=== PATIENT | male | born 1965 | race Asian ===

== ENCOUNTER 2020-11-18 12:58 | Emergency (ER) | payer OTHER ==
[~2020-11-18] VITALS: Ht 170.2 cm; Wt 104.5 kg
[~2020-11-18 12:58] MED LIST: NOCURR
[2020-11-18] MEDS ORDERED: AMLO-257 PO (13:11)
[2020-11-18] MEDS ORDERED: METF-960 PO (13:11)
[2020-11-18] MEDS ORDERED: GLIP5 PO (13:11)
[2020-11-18] MEDS ORDERED: POTA8TAB71 PO (13:11)
[2020-11-18] MEDS ORDERED: LABE100T8 PO (13:11)
[2020-11-18] MEDS ORDERED: ASPI-1450 PO (13:11)
[2020-11-18] MEDS ORDERED: LOSA25TA21 PO (13:11)
[2020-11-18] MEDS ORDERED: RAMI1.258 PO (13:11)
[2020-11-18 13:22] LABS: GLUCOSE,POINT OF CARE 141 MG/DL (70-110)
[2020-11-18 14:44] LABS: BASOPHILS % (AUTO) 0.4 % (0.0-2.0); EOSINOPHILS % (AUTO) 1.6 % (1.0-6.0); HEMOGLOBIN 13.4 g/dL (13.5-17.5); LYMPHOCYTES # (AUTO) 2.1 K/uL (1.0-4.8); LYMPHOCYTES % (AUTO) 23.3 % (22.0-44.0); MEAN CORPUSCULAR HEMOGLOBIN 31.5 pg (26.0-34.0); MEAN CORPUSCULAR HGB CONC 35.3 G/dL (31.0-37.0); MEAN CORPUSCULAR VOLUME 89 fL (80-100); MONOCYTES # (AUTO) 0.7 K/uL (0.1-1.0); MONOCYTES % (AUTO) 8.1 % (2.0-9.0); NEUTROPHILS # (AUTO) 6.1 K/uL (1.8-7.7); NEUTROPHILS % (AUTO) 66.6 % (40.0-70.0); PLATELET COUNT (AUTO) 169 K/uL (150-450); RED BLOOD CELL COUNT(AUTO) 4.26 MIL/uL (4.50-5.90); RED CELL DISTRIBUTION WIDTH 14.2 % (11.5-14.5)
[2020-11-18 14:51] LABS: CREATININE 1.44 mg/dL (0.60-1.30); POTASSIUM 3.6 mmol/L (3.5-5.1)
[2020-11-18 14:57] LABS: ALBUMIN 3.6 g/dL (3.4-5.0); BILIRUBIN,TOTAL 0.5 mg/dL (0.1-1.0); TOTAL PROTEIN, SERUM 7.6 g/dL (6.4-8.2)
[2020-11-18 16:17] LABS: APPEARANCE,URINE CLEAR (CLEAR); BILIRUBIN,URINE NEGATIVE (NEGATIVE); GLUCOSE, URINE (UA) >=1000 mg/dL (NEGATIVE); KETONES,URINE NEGATIVE (NEGATIVE); LEUKOCYTE ESTERASE ,URINE NEGATIVE (NEGATIVE); NITRATE,URINE NEGATIVE (NEGATIVE); OCCULT BLOOD,URINE NEGATIVE (NEGATIVE); PROTEIN,URINE NEGATIVE (NEGATIVE); UROBILINOGEN,URINE 0.2 mg/dL (<=1.0)
[2020-11-18 16:27] LABS: RBC,URINE None Seen /HPF (0-2); WBC,URINE 0-2 /HPF (0-5)
[2020-11-18 16:28] LABS: BACTERIA,URINE Rare /HPF (None Seen); SQUAMOUS EPITHELIAL CELL,UR Rare /LPF (None Seen)
[2020-11-18 17:07] VITALS: BP 168/106
[2020-11-18] MEDS ORDERED: ACETAMINOPHEN 500 MG TABLET PO ONE (17:15)
[2020-11-18] MEDS ORDERED: PB/HYOSCY/ATR/SCOP/LIDO/MAALOX 55 ML BOTTLE PO ONE (17:15)
[2020-11-18] MEDS ORDERED: CARV25TA32 PO (17:19)
[2020-11-18] MEDS ORDERED: HYDR25TA PO (17:19)
[2020-11-18] MEDS ORDERED: AMLO-258 PO (17:19)
[2020-11-18] MEDS ORDERED: SIMV-43 PO (17:19)
[2020-11-18] MEDS ORDERED: LOSA50TA37 PO (17:19)
[2020-11-18] MEDS ORDERED: ALOG25TA2 PO (17:19)
[2020-11-18] MEDS ORDERED: ASPI-1444 PO (17:19)
== END 2020-11-18 17:50 | disposition home or self-care (01) ==
LOC: EMS 13:04
DX: R10.13 Epigastric pain (principal); E11.9 Type 2 diabetes mellitus without complications; I10 Essential (primary) hypertension; Z88.5 Allergy status to narcotic agent; Z79.82 Long term (current) use of aspirin; Z79.84 Long term (current) use of oral hypoglycemic drugs
CPT/HCPCS: 74022; 80053; 81001; 82962; 83690; 83880; 84484; 85025; 93005; 99285